=== PATIENT | female | born 1960 | race Caucasian/White ===

== ENCOUNTER 2021-02-02 13:11 | Inpatient (IN) | payer MEDICAID, OTHER, SELFPAY ==
[~2021-02-02] VITALS: Ht 149.9 cm; Wt 58.2 kg
[2021-02-02] MEDS ORDERED: SODIUM CHLORIDE FLUSH 10ML SYR IVF ONE (13:30)
[2021-02-02] MEDS ORDERED: HYDROmorphone 1 MG/ML, 1ML INJ IV ONE (13:30)
[2021-02-02] MEDS ORDERED: ONDANSETRON 2MG/ML, 2ML IVPush ONE (13:30)
--- NOTE | 2021-02-02 13:36 | NUR ---
ASSUMED CARE OF PT. BILAT KIDNEY STONES AND INFECTION.
[2021-02-02] MEDS ORDERED: LEVO112T4 PO ×2 (13:45)
[2021-02-02] MEDS ORDERED: METH2.5T PO (13:45)
[2021-02-02] MEDS ORDERED: ONDANSETRON 2MG/ML, 2ML ONE ×2 (13:52→15:32)
[2021-02-02] MEDS ORDERED: HYDROmorphone 1 MG/ML, 1ML INJ ONE (13:52)
--- NOTE | 2021-02-02 14:15 | NUR ---
THIS IS A 60 YO F TX FROM [facility] W/ C/O BILAT KIDNEY STONES. PT TO HAVE PROCEDURE AT THIS FACILITY. PT RECEIVED TORADOL, DILAUDID, ZOFRAN AND 1L NS BOLUS [employer] AGENT. PT RESP EVEN AND UNLABORED, NADN. AT BEDSIDE FOR RAPID COVID SWAB.
[2021-02-02] MEDS: MEROPENEM 500 MG in SODIUM CHLORIDE 0.9% 100 ML IV SCH ×2 (14:30→23:27)
[2021-02-02] MEDS ORDERED: LEVOFLOXACIN/PMX 500MG/100ML 100 ML IVPB ONE (14:30)
[2021-02-02] MEDS ORDERED: LEVOFLOXACIN/PMX 500MG/100ML 100 ML ONE (14:34)
--- NOTE | 2021-02-02 14:45 | NUR ---
REPORT GIVEN TO OR NURSE, PT UPDATED. WAITING FOR COVID RESULT
[2021-02-02] MEDS ORDERED: FENTANYL PF 250 MCG/5ML ONE (14:49)
[2021-02-02] MEDS ORDERED: MIDAZOLAM 1 MG/ML, 2ML ONE (14:57)
[2021-02-02] MEDS ORDERED: EPHEDRINE 50 MG/ML, 1ML IVPush PRN (15:00)
[2021-02-02] MEDS ORDERED: MEPERIDINE/PF 25MG/0.5ML IVPush PRN (15:00)
[2021-02-02] MEDS ORDERED: ONDANSETRON 2MG/ML, 2ML IVPush PRN ×2 (15:00→18:00)
[2021-02-02] MEDS ORDERED: HYDROmorphone 1 MG/ML, 1ML INJ IVPush PRN (15:00)
[2021-02-02] MEDS ORDERED: hydrALAzine 20 MG/ML, 1ML IV PRN (15:00)
[2021-02-02] MEDS ORDERED: PROMETHAZINE 25 MG/ML, 1ML IVPush PRN (15:00)
[2021-02-02] MEDS ORDERED: LORazepam 2 MG/ML, 1ML IVPush PRN (15:00)
[2021-02-02] MEDS ORDERED: LABETALOL 5MG/ML, 20ML IV PRN (15:00)
[2021-02-02] MEDS ORDERED: OXYcodone 5 MG/5 ML ORAL.SOL UDC PO PRN (15:00)
[2021-02-02] MEDS ORDERED: ACETAMINOPHEN 325 MG TABLET PO PRN ×2 (15:00→18:00)
[2021-02-02] MEDS ORDERED: METHOCARBAMOL 1,000 MG in DEXTROSE 5% 100 ML IV PRN (15:00)
[2021-02-02 15:09] LABS: MICROSCOPIC INDICATED
--- NOTE | 2021-02-02 15:19 | NUR ---
OR BEDSIDE, GETTING READY TO TAKE PT FOR SX. PT STILL HAS ABX INFUSING.
[2021-02-02] MEDS ORDERED: PROPOFOL 10 MG/ML, 20ML ONE (15:32)
[2021-02-02] MEDS ORDERED: FENTANYL PF 100 MCG/2ML ONE (16:21)
[2021-02-02] MEDS ORDERED: LORazepam 2 MG/ML, 1ML ONE (16:21)
[2021-02-02] MEDS: LORazepam 2 MG/ML, 1ML IVPush PRN ×4 (16:22→16:55)
[2021-02-02] MEDS: FENTANYL PF 100 MCG/2ML IV PRN ×2 (16:25→16:30)
[2021-02-02] MEDS ORDERED: OXYcodone 5 MG/5 ML ORAL.SOL UDC ONE (16:44)
[2021-02-02] MEDS ORDERED: MEPERIDINE/PF 25MG/ML,1ML ONE (16:44)
[2021-02-02] MEDS ORDERED: NICOTINE 21 MG/24 HR PATCH.TD24 TD ONE (18:00)
[2021-02-02] MEDS ORDERED: ONDANSETRON ODT 4 MG PO PRN (18:00)
[2021-02-02 18:54] VITALS: BP 110/56
[2021-02-02] MEDS: OXYcodone IR 5MG TABLET PO PRN (20:44)
[2021-02-02] MEDS: KETOROLAC 30 MG/1 ML IV PRN (20:44)
[2021-02-02] MEDS: GUAIFENESIN ER 600 MG TABLET PO SCH (20:44)
[2021-02-02] MEDS: TEMAZEPAM 15 MG CAPSULE PO PRN (21:39)
[2021-02-02] MEDS: LACTATED RINGERS 1,000 ML IV SCH (23:27)
[2021-02-03] MEDS: OXYcodone IR 5MG TABLET PO PRN ×5 (00:45→23:39)
[2021-02-03 02:24] VITALS: BP 105/69
[2021-02-03] MEDS: KETOROLAC 30 MG/1 ML IV PRN ×2 (02:39→08:59)
[2021-02-03] MEDS ORDERED: OXYcodone IR 5MG TABLET PO ONE (04:00)
[2021-02-03] MEDS: CALCIUM CARBONATE 500 MG TAB.CHEW PO PRN ×3 (04:15→14:16)
[2021-02-03] MEDS: LEVOTHYROXINE 112 MCG TABLET PO SCH (05:29)
[2021-02-03 05:39] LABS: BASOPHILS % (AUTO) 0 % (0-1); EOSINOPHILS % (AUTO) 1 % (1-7); LYMPHOCYTES % (AUTO) 18 % (22-44); MD NO; MEAN CORPUSCULAR HEMOGLOBIN 35.8 pg (27.0-34.8); MEAN CORPUSCULAR HGB CONC 35.2 g/dL (32.4-35.8); MEAN PLATELET VOLUME 6.9 fL (7.4-10.4); MONOCYTES % (AUTO) 4 % (2-9); NEUTROPHILS % (AUTO) 76 % (42-75); PLATELET COUNT 205 x10^3/uL (130-400); RED BLOOD COUNT 2.87 x10^6/uL (3.82-5.3); RED CELL DISTRIBUTION WIDTH 13.8 % (9.6-15.2)
[2021-02-03 05:55] LABS: ANION GAP 4 mmol/L (5-15); CALCIUM 8.6 mg/dL (8.5-10.1); CHLORIDE 104 mmol/L (98-107); CREATININE 1.01 mg/dL (0.55-1.02)
[2021-02-03 07:40] VITALS: BP 144/85
[2021-02-03] MEDS: MEROPENEM 500 MG in SODIUM CHLORIDE 0.9% 100 ML IV SCH ×3 (08:59→23:38)
[2021-02-03] MEDS: GUAIFENESIN ER 600 MG TABLET PO SCH ×2 (09:00→20:04)
[2021-02-03] MEDS: LACTATED RINGERS 1,000 ML IV SCH ×2 (10:50→20:49)
[2021-02-03] MEDS ORDERED: OXYcodone IR 5MG TABLET PO PRN ×2 (12:00→14:00)
[2021-02-03] MEDS ORDERED: OPIUM/BELLADONNA SUPP.RECT 16.2-30 MG PR PRN ×2 (12:00→18:00)
[2021-02-03] MEDS: TAMSULOSIN 0.4 MG CAP.ER.24H PO SCH (12:03)
[2021-02-03] MEDS: OXYBUTYNIN CHLORIDE 5 MG TABLET PO SCH ×2 (12:03→20:04)
[2021-02-03 13:45] VITALS: BP 116/76
[2021-02-03] MEDS ORDERED: NICOTINE 21 MG/24 HR PATCH.TD24 TD SCH (14:30)
[2021-02-03 19:24] VITALS: BP 98/63
[2021-02-03] MEDS: TEMAZEPAM 15 MG CAPSULE PO PRN ×2 (20:48→22:02)
[2021-02-04 00:53] VITALS: BP 96/57
[2021-02-04] MEDS: KETOROLAC 30 MG/1 ML IV PRN ×2 (04:11→11:05)
[2021-02-04] MEDS: CALCIUM CARBONATE 500 MG TAB.CHEW PO PRN ×2 (04:11→11:05)
[2021-02-04] MEDS: LEVOTHYROXINE 112 MCG TABLET PO SCH (05:52)
[2021-02-04] MEDS: OXYcodone IR 5MG TABLET PO PRN (05:52)
[2021-02-04] MEDS: GUAIFENESIN ER 600 MG TABLET PO SCH ×2 (07:33→07:36)
[2021-02-04] MEDS: TAMSULOSIN 0.4 MG CAP.ER.24H PO SCH (07:33)
[2021-02-04] MEDS: MEROPENEM 500 MG in SODIUM CHLORIDE 0.9% 100 ML IV SCH (07:33)
[2021-02-04] MEDS: OXYBUTYNIN CHLORIDE 5 MG TABLET PO SCH (07:33)
[2021-02-04 08:25] VITALS: BP 112/71
[2021-02-04] MEDS ORDERED: OXYB5TAB10 PO (12:06)
[2021-02-04] MEDS ORDERED: FOSF3PAC PO (12:06)
[2021-02-04] MEDS ORDERED: TAMS-11 PO (12:06)
[2021-02-04] MEDS ORDERED: OPIU1SUP2 PR (12:06)
[2021-02-04] MEDS ORDERED: OXYC5TAB98 PO (12:06)
[2021-02-04 12:29] VITALS: BP 126/79
== END 2021-02-04 14:15 | disposition home or self-care (01) | DRG 660 ==
LOC: ED 13:57 → EDIP 13:58 → SUATTDRO 14:03 → 4NE 18:16 → DCLOUNGE 02-04 14:04
PROVIDERS: ADMIT Internal Medicine; ATTEND Internal Medicine
PROC: 0T778DZ Dilation of Left Ureter with Intraluminal Device, Via Natural or Artificial Opening Endoscopic (ICD-10-PCS; 2021-02-02)
PROC: 0T9B70Z Drainage of Bladder with Drainage Device, Via Natural or Artificial Opening (ICD-10-PCS; 2021-02-02)
PROC: 0TC78ZZ Extirpation of Matter from Left Ureter, Via Natural or Artificial Opening Endoscopic (ICD-10-PCS; principal; 2021-02-02 15:00)
DX: N13.6 Pyonephrosis (principal); G90.50 Complex regional pain syndrome I, unspecified; F17.210 Nicotine dependence, cigarettes, uncomplicated; E89.0 Postprocedural hypothyroidism; J44.9 Chronic obstructive pulmonary disease, unspecified; I10 Essential (primary) hypertension; M06.9 Rheumatoid arthritis, unspecified; M81.0 Age-related osteoporosis without current pathological fracture; J40 Bronchitis, not specified as acute or chronic; Z88.5 Allergy status to narcotic agent; Z88.0 Allergy status to penicillin; Z88.8 Allergy status to other drugs, medicaments and biological substances; M41.9 Scoliosis, unspecified; Z96.652 Presence of left artificial knee joint; Z90.721 Acquired absence of ovaries, unilateral; Z20.822 Contact with and (suspected) exposure to COVID-19
CPT/HCPCS: 36415; 74018; 76000; 80048; 81001; 83605; 84145; 85025; 87040; 87086; 87635; 96374; 96375; 99285; G0378; J1170; J1885; J1956; J2175; J2185; J2250; J2405; J2704; J3010; C1758; C1769; C2617; J2060; J7120

== ENCOUNTER 2021-02-07 00:03 | Inpatient (IN) | payer OTHER ==
[~2021-02-07] VITALS: Ht 149.9 cm; Wt 60.7 kg
[~2021-02-07 00:03] MED LIST: FOSF3PAC PO; LEVO112T4 PO; METH2.5T PO; OPIU1SUP2 PR; OXYB5TAB10 PO; OXYC5TAB98 PO; TAMS-11 PO
[2021-02-07] MEDS ORDERED: LISI10TA19 PO (01:25)
[2021-02-07] MEDS ORDERED: FOLI0.8C PO (01:29)
[2021-02-07 01:38] VITALS: BP 94/54
[2021-02-07] MEDS ORDERED: OXYcodone 5 MG/5 ML ORAL.SOL UDC PO PRN (03:00)
[2021-02-07] MEDS: OXYcodone IR 5MG TABLET PO PRN ×4 (03:13→19:55)
[2021-02-07] MEDS ORDERED: LACTATED RINGERS 1,000 ML IV SCH (06:00)
[2021-02-07] MEDS ORDERED: KETOROLAC 30 MG/1 ML IV PRN (06:00)
[2021-02-07] MEDS ORDERED: OPIUM/BELLADONNA SUPP.RECT 16.2-30 MG PR PRN (06:00)
[2021-02-07] MEDS ORDERED: ENALAPRILAT 1.25 MG/ML, 2ML IVPush PRN (06:00)
[2021-02-07] MEDS ORDERED: ONDANSETRON 2MG/ML, 2ML IVPush PRN (06:00)
[2021-02-07] MEDS ORDERED: BISACODYL 10 MG SUPP PR PRN (06:00)
[2021-02-07] MEDS ORDERED: ACETAMINOPHEN 325 MG TABLET PO PRN (06:00)
[2021-02-07] MEDS: NICOTINE 14MG/24 HR PATCH.TD24 TD SCH (06:16)
[2021-02-07] MEDS: AZTREONAM 1 GM in SODIUM CHLORIDE 0.9% 50 ML IV SCH ×3 (06:16→22:04)
[2021-02-07 06:53] LABS: MICROSCOPIC INDICATED
[2021-02-07 06:54] LABS: BASOPHILS % (AUTO) 1 % (0-1); EOSINOPHILS % (AUTO) 2 % (1-7); LYMPHOCYTES % (AUTO) 30 % (22-44); MEAN CORPUSCULAR HEMOGLOBIN 35.3 pg (27.0-34.8); MEAN CORPUSCULAR HGB CONC 34.3 g/dL (32.4-35.8); MEAN PLATELET VOLUME 6.8 fL (7.4-10.4); MONOCYTES % (AUTO) 8 % (2-9); NEUTROPHILS % (AUTO) 59 % (42-75); PLATELET COUNT 293 x10^3/uL (130-400); RED BLOOD COUNT 3.01 x10^6/uL (3.82-5.3); RED CELL DISTRIBUTION WIDTH 13.8 % (9.6-15.2)
[2021-02-07 06:56] LABS: MD NO
[2021-02-07 07:05] LABS: ANION GAP 5 mmol/L (5-15); CALCIUM 8.6 mg/dL (8.5-10.1); CHLORIDE 109 mmol/L (98-107); CREATININE 0.75 mg/dL (0.55-1.02)
[2021-02-07] MEDS: SENNA/DOCUSATE TABLET PO SCH (08:01)
[2021-02-07] MEDS: TAMSULOSIN 0.4 MG CAP.ER.24H PO SCH (08:01)
[2021-02-07 08:12] VITALS: BP 118/67
[2021-02-07 08:39] LABS: FREE T4 (FREE THYROXINE) 1.31 ng/dL (0.76-1.46)
[2021-02-07] MEDS ORDERED: OXYBUTYNIN CHLORIDE 5 MG TABLET PO SCH (09:00)
[2021-02-07] MEDS ORDERED: LISINOPRIL 10 MG TABLET PO SCH (09:00)
[2021-02-07] MEDS ORDERED: CYANOCOBALAMIN 1,000 MCG/ML, 1ML IM ONE (10:00)
[2021-02-07] MEDS: PHENAZOPYRIDINE 200 MG TABLET PO SCH ×5 (10:30→19:56)
[2021-02-07] MEDS: OPIUM/BELLADONNA SUPP.RECT 16.2-30 MG PR SCH ×3 (11:17→22:08)
[2021-02-07 13:06] VITALS: BP 92/49
[2021-02-07] MEDS: OXYBUTYNIN CHLORIDE 5 MG TABLET PO SCH ×2 (16:26→22:06)
[2021-02-07 22:00] VITALS: BP 122/70
[2021-02-08 00:07] VITALS: BP 106/68
[2021-02-08] MEDS: OPIUM/BELLADONNA SUPP.RECT 16.2-30 MG PR SCH ×2 (04:30→10:30)
[2021-02-08] MEDS: AZTREONAM 1 GM in SODIUM CHLORIDE 0.9% 50 ML IV SCH (05:32)
[2021-02-08] MEDS: NICOTINE 14MG/24 HR PATCH.TD24 TD SCH (05:32)
[2021-02-08] MEDS: OXYcodone IR 5MG TABLET PO PRN ×2 (05:52→10:50)
[2021-02-08 07:01] VITALS: BP 116/69
[2021-02-08] MEDS: TAMSULOSIN 0.4 MG CAP.ER.24H PO SCH (08:05)
[2021-02-08] MEDS: PHENAZOPYRIDINE 200 MG TABLET PO SCH (08:06)
[2021-02-08] MEDS: OXYBUTYNIN CHLORIDE 5 MG TABLET PO SCH (08:06)
[2021-02-08] MEDS: SENNA/DOCUSATE TABLET PO SCH (08:06)
[2021-02-08] MEDS ORDERED: SULF1TAB24 PO (12:20)
[2021-02-08] MEDS ORDERED: OXYC5TAB98 PO (13:44)
[2021-02-08] MEDS ORDERED: OXYB-39 PO (13:44)
== END 2021-02-08 13:25 | disposition home or self-care (01) | DRG 690 ==
LOC: OBSVTOIN 01:11 → INTOOBSV 01:11 → 3N 01:11
PROVIDERS: ADMIT Family Medicine; ATTEND Family Medicine
DX: N13.6 Pyonephrosis (principal); D84.821 Immunodeficiency due to drugs; D53.9 Nutritional anemia, unspecified; F17.200 Nicotine dependence, unspecified, uncomplicated; G89.29 Other chronic pain; K59.03 Drug induced constipation; K59.09 Other constipation; I95.9 Hypotension, unspecified; Z96.652 Presence of left artificial knee joint; M06.9 Rheumatoid arthritis, unspecified; N32.89 Other specified disorders of bladder; T40.2X5A Adverse effect of other opioids, initial encounter; Z79.899 Other long term (current) drug therapy; Z87.442 Personal history of urinary calculi; Z98.51 Tubal ligation status; Z90.721 Acquired absence of ovaries, unilateral; Z79.891 Long term (current) use of opiate analgesic; Z79.01 Long term (current) use of anticoagulants; Z88.1 Allergy status to other antibiotic agents; Z88.0 Allergy status to penicillin
CPT/HCPCS: 36415; 80048; 81001; 82607; 84439; 84443; 84481; 85025; 87086; G0378; J3420; J7120

== ENCOUNTER 2021-02-17 15:17 | Day surgery (SDC) | payer BC ==
[~2021-02-17] VITALS: Ht 149.9 cm; Wt 50.3 kg
[~2021-02-17 15:17] MED LIST changes: +FOLI0.8C PO; +LISI10TA19 PO; +OXYB-39 PO; +SULF1TAB24 PO
[2021-02-17 16:02] VITALS: BP 122/80
[2021-02-17 16:10] VITALS: BP 122/80
[2021-02-17] MEDS ORDERED: CHLORHEXIDINE 15 ML UDC ONE (16:10)
[2021-02-17] MEDS ORDERED: CHLORHEXIDINE 15 ML UDC PO ONE (16:30)
[2021-02-17] MEDS ORDERED: LACTATED RINGERS 1,000 ML IV SCH (16:30)
[2021-02-17] MEDS ORDERED: ONDANSETRON 2MG/ML, 2ML ONE (17:03)
[2021-02-17] MEDS ORDERED: ROCURONIUM 10MG/ML,5ML ONE (17:03)
[2021-02-17] MEDS ORDERED: CEFAZOLIN 1,000 MG ONE (17:03)
[2021-02-17] MEDS ORDERED: PROPOFOL 10 MG/ML, 20ML ONE (17:03)
[2021-02-17] MEDS ORDERED: NEOSTIGMINE 1 MG/ML, 10ML ONE (17:03)
[2021-02-17] MEDS ORDERED: GLYCOPYRROLATE 0.2MG/1ML, 5ML ONE (17:03)
[2021-02-17] MEDS ORDERED: MIDAZOLAM 1 MG/ML, 2ML ONE (18:30)
[2021-02-17] MEDS ORDERED: FENTANYL PF 250 MCG/5ML ONE (18:30)
[2021-02-17] MEDS ORDERED: CIPROFLOXACIN/PMX 400MG/200ML 200 ML ONE (18:45)
[2021-02-17] MEDS ORDERED: PHENYLEPHRINE 10 MG/ML ONE (18:48)
[2021-02-17] MEDS ORDERED: ACETAMINOPHEN 325 MG TABLET PO PRN (19:00)
[2021-02-17] MEDS ORDERED: OXYcodone 5 MG/5 ML ORAL.SOL UDC PO PRN (19:00)
[2021-02-17] MEDS ORDERED: PROMETHAZINE 25 MG/ML, 1ML IVPush PRN (19:00)
[2021-02-17] MEDS ORDERED: MEPERIDINE/PF 25MG/0.5ML IVPush PRN (19:00)
[2021-02-17] MEDS ORDERED: LABETALOL 5MG/ML, 20ML IV PRN (19:00)
[2021-02-17] MEDS ORDERED: HALOPERIDOL 5 MG/ML IV PRN (19:00)
[2021-02-17] MEDS ORDERED: hydrALAzine 20 MG/ML, 1ML IV PRN (19:00)
[2021-02-17] MEDS ORDERED: OXYcodone 5 MG/5 ML ORAL.SOL UDC ONE (19:30)
[2021-02-17] MEDS ORDERED: ACETAMINOPHEN 650 MG/20.3 ML UDC ONE (19:30)
[2021-02-17] MEDS ORDERED: FENTANYL PF 100 MCG/2ML ONE ×2 (19:30→19:48)
[2021-02-17] MEDS: FENTANYL PF 100 MCG/2ML IV PRN ×3 (19:31→19:52)
[2021-02-17] MEDS ORDERED: HYDROmorphone 1 MG/ML, 1ML INJ ONE (19:48)
[2021-02-17] MEDS: HYDROmorphone 1 MG/ML, 1ML INJ IVPush PRN ×2 (19:52→19:59)
== END 2021-02-17 21:40 | disposition home or self-care (01) ==
LOC: SDC 15:17
PROVIDERS: ATTEND Urology
DX: N20.1 Calculus of ureter (principal); I10 Essential (primary) hypertension; E03.9 Hypothyroidism, unspecified; M06.9 Rheumatoid arthritis, unspecified; F17.210 Nicotine dependence, cigarettes, uncomplicated; Z20.822 Contact with and (suspected) exposure to COVID-19; Z88.0 Allergy status to penicillin; Z88.5 Allergy status to narcotic agent; Z88.8 Allergy status to other drugs, medicaments and biological substances; Z72.89 Other problems related to lifestyle; Z79.899 Other long term (current) drug therapy
CPT/HCPCS: 52353; 74018; 93005; C1769; J0690; J0744; J1170; J2250; J2370; J2405; J2704; J2710; J3010; U0003; U0005